=== PATIENT | female | born 1965 | race Caucasian/White ===

== ENCOUNTER → 2020-03-02 13:13 | Outpatient (BNVA) | payer MEDICAID, SELFPAY | PROVIDERS: PCP Internal Medicine; Referring Provider Internal Medicine; Visit Provider Internal Medicine Pulmonary Disease | DX: R53.83 Other fatigue (principal); G47.33 Obstructive sleep apnea (adult) (pediatric); R06.00 Dyspnea, unspecified; Z87.891 Personal history of nicotine dependence | CPT/HCPCS: 99202 ==

== ENCOUNTER → 2020-03-31 11:42 | Outpatient (REF) | payer MEDICAID, SELFPAY | LOC: HO.SL 11:42 | PROVIDERS: Visit Provider Internal Medicine Pulmonary Disease | DX: G47.10 Hypersomnia, unspecified (principal) | CPT/HCPCS: 95806 ==

== ENCOUNTER → 2020-04-13 12:39 | Outpatient (BNVA) | payer MEDICAID, SELFPAY | PROVIDERS: PCP Internal Medicine; Visit Provider Internal Medicine Pulmonary Disease | DX: J45.909 Unspecified asthma, uncomplicated (principal); R06.00 Dyspnea, unspecified | CPT/HCPCS: 99212 ==

== ENCOUNTER → 2020-05-21 13:12 | Outpatient (BNVA) | payer MEDICAID, SELFPAY | PROVIDERS: PCP Internal Medicine; Visit Provider Internal Medicine Pulmonary Disease | DX: J45.909 Unspecified asthma, uncomplicated (principal); R06.00 Dyspnea, unspecified | CPT/HCPCS: 99212 ==

== ENCOUNTER 2020-08-16 12:43 | Outpatient (REF) | payer MEDICAID, SELFPAY | END 2020-08-16 12:44 | disposition home or self-care (01) | LOC: HO.CT 12:43 | PROVIDERS: PCP Internal Medicine; Visit Provider Internal Medicine | DX: Z13.89 Encounter for screening for other disorder (principal) ==

== ENCOUNTER → 2020-12-22 12:49 | Outpatient (REF) | payer MEDICAID, SELFPAY ==
--- NOTE | 2020-12-22 12:55 | CA_ITS ---
Transthoracic Echocardiogram Patient (Last, First, Middle): Adela Grier, Gender: Female Date of : 1965 Age: 55 Procedure Date: 12/22/2020 Procedure Type: Transthoracic Echocardiogram Location: OP Height: 149.86 cm Weight: 65.32 kg BSA: 1.60 m2 Heart Rate: bpm BP: 190 / 62 mmHg Fleet Director: DSG Referring MD: Addy Iraheta MD Symptoms: R06.00 - Dyspnea, unspecified Study Quality: Fair ECG Rhythm: Sinus Conclusions: - The left ventricular systolic function is low normal. The visually estimated ejection fraction is between 50-55%. Findings Procedure Information Contrast agent, definity, is being given per protocol without apparent complications. Left Ventricle Normal left ventricular cavity size. The left ventricular systolic function is low normal. The visually estimated ejection fraction is between 50-55%. Paradoxical septal motion, possibly from conduction system disease. Prior Study Comparison No prior study available for comparison. Measurements 2D Systolic Function EF 4C: 58.80 >55% EF 2C: 62.10 >55% EF BiP: 62.50 >55% Mitral Valve MV Pk E: 1.05 MV PK A: 0.86 MV Decel Time: 179.00 E/A: 1.20 E'Lateral: 7.51 E'Medial: 6.74 E/E' Med: 15.60 E/E' Lat: 14.00 PHT: 52.00 MVA PHT: 4.23 Decel [place]: 5.90 Diastolic Function MV Pk E: 1.05 MV Pk A: 0.86 E/A: 1.20 E'Medial: 6.74 E/E' Med: 15.60 E' Laterial: 7.51 E/E' Lat: 14.00 Right Ventricle TAPSE (mm): 2.81 Updated in Other Vendor System with Status of Final Ricki Loaiza MD electronically signed on 12/23/2020 3:41:43 PM with status of Final
== END ==
LOC: HO.CARD 12:49
PROVIDERS: Visit Provider Internal Medicine Cardiovascular Disease
DX: R93.1 Abnormal findings on diagnostic imaging of heart and coronary circulation (principal)
CPT/HCPCS: 93308; Q9957

== ENCOUNTER → 2021-01-06 12:52 | Outpatient (BNVA) | payer MEDICAID, SELFPAY | PROVIDERS: PCP Internal Medicine; Visit Provider Internal Medicine Pulmonary Disease | DX: J45.909 Unspecified asthma, uncomplicated (principal); R06.00 Dyspnea, unspecified; E66.9 Obesity, unspecified; Z87.891 Personal history of nicotine dependence; Z88.1 Allergy status to other antibiotic agents; Z88.0 Allergy status to penicillin | CPT/HCPCS: 99212 ==

== ENCOUNTER 2021-01-20 11:53 | Outpatient (REF) | payer MEDICAID, SELFPAY ==
--- NOTE | 2021-01-20 16:32 | PFT_ITS ---
FLOWS: FEV1 74% of predicted at 1.62 L. FVC 66% of predicted at 1.82 L. FEV1 to FVC ratio of 0.89. No bronchodilator response, except in small to medium airways. LUNG VOLUMES: Total lung capacity 103% of predicted at 4.45 L. Residual volume 147% of predicted at 2.45 L. Slow vital capacity 75% of predicted at 2.00 L. Expiratory reserve volume 12% of predicted at 0.09 L. Diffusion capacity is normal. IMPRESSION: No obstructive or restrictive ventilatory defect. No bronchodilator response except in small to medium airways. Increased residual volume suggests air trapping. Decreased expiratory reserve volume suggests extrathoracic restriction likely secondary to abdominal obesity. MD JOANNA López/MODL / [id number] MTDD
== END 2021-01-20 11:54 | disposition home or self-care (01) ==
LOC: HO.RESP 11:53
PROVIDERS: PCP Internal Medicine; Visit Provider Internal Medicine Pulmonary Disease
DX: J45.909 Unspecified asthma, uncomplicated (principal)
CPT/HCPCS: 94060; 94727; 94729

== ENCOUNTER 2021-02-02 11:40 | Outpatient (REF) | payer MEDICAID, SELFPAY ==
[2021-02-02 11:53] LABS: MANUAL DIFF FLAG NO
[2021-02-02 12:10] LABS: Basophils Absolute Auto 0.1 X10*3/uL (0.0-0.2); Basophils Percent Auto 0.7 % (0-2); Eosinophils Absolute Auto 0.4 X10*3/uL (0.0-0.4); Eosinophils Percent Auto 5.3 % (0-4); Hematocrit 40.6 % (37.0-47.0); Hemoglobin 13.1 g/dl (12.0-16.0); Imm Gran Abs Auto 0.02 X10*3/uL (0.00-0.03); Imm Gran Pct Auto 0.3 % (0.0-0.4); Lymphocytes Absolute Auto 2.9 X10*3/uL (1.2-4.9); Lymphocytes Percent Auto 38.1 % (20-40); Mean Corpuscular HGB Conc 32.3 g/dl (31.0-35.0); Mean Corpuscular Hemoglobin 29.2 pg (27.0-33.0); Mean Corpuscular Volume 90.6 fL (80.0-98.0); Monocytes Absolute Auto 0.5 X10*3/uL (0.1-1.2); Monocytes Percent Auto 6.6 % (2-11); Neutrophils Absolute Auto 3.7 x10*3/uL (2.0-8.3); Platelet Count 371 X10*3/uL (160-400); Red Blood Count 4.48 X10*6/uL (4.20-5.50); Red Cell Distribution Width 13.2 % (11.0-16.0); White Blood Count 7.6 X10*3/uL (4.8-10.8)
== END 2021-02-02 11:41 | disposition home or self-care (01) ==
LOC: HO.LAB 11:40
PROVIDERS: PCP Internal Medicine; Visit Provider Internal Medicine Pulmonary Disease
DX: J45.909 Unspecified asthma, uncomplicated (principal)
CPT/HCPCS: 36415; 82785; 85025; 86003

== ENCOUNTER → 2021-02-04 12:44 | Outpatient (BNVA) | payer MEDICAID, SELFPAY | PROVIDERS: PCP Internal Medicine; Visit Provider Internal Medicine Pulmonary Disease | DX: J45.909 Unspecified asthma, uncomplicated (principal); Z91.09 Other allergy status, other than to drugs and biological substances | CPT/HCPCS: 99212 ==

== ENCOUNTER 2021-03-02 11:57 | Outpatient (REF) | payer MEDICAID, SELFPAY | END 2021-03-02 11:58 | disposition home or self-care (01) | LOC: HO.MDS 11:57 | PROVIDERS: PCP Internal Medicine; Visit Provider Internal Medicine Pulmonary Disease | DX: J45.50 Severe persistent asthma, uncomplicated (principal) | CPT/HCPCS: 96372; J2357 ==

== ENCOUNTER 2021-03-16 11:50 | Outpatient (REF) | payer MEDICAID, SELFPAY | END 2021-03-16 11:51 | disposition home or self-care (01) | LOC: HO.MDS 11:50 | PROVIDERS: PCP Internal Medicine; Visit Provider Internal Medicine Pulmonary Disease | DX: J45.50 Severe persistent asthma, uncomplicated (principal) | CPT/HCPCS: 96372; J2357 ==

== ENCOUNTER 2021-04-06 10:51 | Outpatient (REF) | payer MEDICAID, SELFPAY | END 2021-04-06 10:52 | disposition home or self-care (01) | LOC: HO.MDS 10:51 | PROVIDERS: PCP Internal Medicine; Visit Provider Internal Medicine Pulmonary Disease | DX: J45.50 Severe persistent asthma, uncomplicated (principal) | CPT/HCPCS: 96372; J2357 ==

== ENCOUNTER 2021-04-27 12:19 | Outpatient (REF) | payer MEDICAID, SELFPAY | END 2021-04-27 12:20 | disposition home or self-care (01) | LOC: HO.MDS 12:19 | PROVIDERS: PCP Internal Medicine; Visit Provider Internal Medicine Pulmonary Disease | DX: J45.50 Severe persistent asthma, uncomplicated (principal) | CPT/HCPCS: 96372; J2357 ==

== ENCOUNTER 2021-05-19 11:46 | Outpatient (REF) | payer MEDICAID, SELFPAY | END 2021-05-19 11:47 | disposition home or self-care (01) | LOC: HO.MDS 11:46 | PROVIDERS: PCP Internal Medicine; Visit Provider Internal Medicine Pulmonary Disease | DX: J45.50 Severe persistent asthma, uncomplicated (principal) | CPT/HCPCS: 96372; J2357 ==

== ENCOUNTER 2021-06-02 11:48 | Outpatient (REF) | payer MEDICAID, SELFPAY | END 2021-06-02 11:49 | disposition home or self-care (01) | LOC: HO.MDS 11:48 | PROVIDERS: PCP Internal Medicine; Visit Provider Internal Medicine Pulmonary Disease | DX: J45.50 Severe persistent asthma, uncomplicated (principal) | CPT/HCPCS: 96372; J2357 ==

== ENCOUNTER 2021-06-16 10:53 | Outpatient (REF) | payer MEDICAID, SELFPAY | END 2021-06-16 10:54 | disposition home or self-care (01) | LOC: HO.MDS 10:53 | PROVIDERS: PCP Internal Medicine; Visit Provider Internal Medicine Pulmonary Disease | DX: J45.50 Severe persistent asthma, uncomplicated (principal) | CPT/HCPCS: 96372; J2357 ==

== ENCOUNTER 2021-06-30 11:49 | Outpatient (REF) | payer MEDICAID, SELFPAY | END 2021-06-30 11:50 | disposition home or self-care (01) | LOC: HO.MDS 11:49 | PROVIDERS: PCP Internal Medicine; Visit Provider Internal Medicine Pulmonary Disease | DX: J45.50 Severe persistent asthma, uncomplicated (principal) | CPT/HCPCS: 96372; J2357 ==

== ENCOUNTER 2021-07-14 11:47 | Outpatient (REF) | payer MEDICAID, SELFPAY | END 2021-07-14 11:48 | disposition home or self-care (01) | LOC: HO.MDS 11:47 | PROVIDERS: PCP Internal Medicine; Visit Provider Internal Medicine Pulmonary Disease | DX: J45.50 Severe persistent asthma, uncomplicated (principal) | CPT/HCPCS: 96372; J2357 ==

== ENCOUNTER 2021-08-04 10:46 | Outpatient (REF) | payer MEDICAID, SELFPAY | END 2021-08-04 10:47 | disposition home or self-care (01) | LOC: HO.MDS 10:46 | PROVIDERS: PCP Internal Medicine; Visit Provider Internal Medicine Pulmonary Disease | DX: J45.50 Severe persistent asthma, uncomplicated (principal) | CPT/HCPCS: 96372; J2357 ==

== ENCOUNTER → 2021-08-25 11:44 | Outpatient (BNVA) | payer MEDICAID, SELFPAY | PROVIDERS: PCP Internal Medicine; Visit Provider Internal Medicine Pulmonary Disease | DX: J45.909 Unspecified asthma, uncomplicated (principal); Z91.09 Other allergy status, other than to drugs and biological substances | CPT/HCPCS: 99212 ==

== ENCOUNTER 2021-09-02 13:41 | Outpatient (REF) | payer MEDICAID, SELFPAY | END 2021-09-02 13:42 | disposition home or self-care (01) | LOC: HO.MDS 13:41 | PROVIDERS: PCP Internal Medicine; Visit Provider Internal Medicine Pulmonary Disease | DX: J45.50 Severe persistent asthma, uncomplicated (principal) | CPT/HCPCS: 96372; J2357 ==

== ENCOUNTER 2021-09-16 11:44 | Outpatient (REF) | payer MEDICAID, SELFPAY | END 2021-09-16 11:45 | disposition home or self-care (01) | LOC: HO.MDS 11:44 | PROVIDERS: PCP Internal Medicine; Visit Provider Internal Medicine Pulmonary Disease | DX: J45.50 Severe persistent asthma, uncomplicated (principal) | CPT/HCPCS: 96372; J2357 ==

== ENCOUNTER 2021-09-30 10:47 | Outpatient (REF) | payer MEDICAID, SELFPAY | END 2021-09-30 10:48 | disposition home or self-care (01) | LOC: HO.MDS 10:47 | PROVIDERS: PCP Internal Medicine; Visit Provider Internal Medicine Pulmonary Disease | DX: J45.50 Severe persistent asthma, uncomplicated (principal) | CPT/HCPCS: 96372; J2357 ==

== ENCOUNTER 2021-10-19 11:48 | Outpatient (REF) | payer MEDICAID, SELFPAY | END 2021-10-19 11:49 | disposition home or self-care (01) | LOC: HO.MDS 11:48 | PROVIDERS: Visit Provider Internal Medicine Pulmonary Disease | DX: J45.50 Severe persistent asthma, uncomplicated (principal) | CPT/HCPCS: 96372; J2357 ==

== ENCOUNTER 2021-11-02 10:49 | Outpatient (REF) | payer MEDICAID, SELFPAY | END 2021-11-02 10:50 | disposition home or self-care (01) | LOC: HO.MDS 10:49 | PROVIDERS: Visit Provider Internal Medicine Pulmonary Disease | DX: J45.50 Severe persistent asthma, uncomplicated (principal) | CPT/HCPCS: 96372; J2357 ==

== ENCOUNTER 2021-11-16 11:01 | Outpatient (REF) | payer MEDICAID, SELFPAY | END 2021-11-16 11:02 | disposition home or self-care (01) | LOC: HO.MDS 11:01 | PROVIDERS: Visit Provider Internal Medicine Pulmonary Disease | DX: J45.50 Severe persistent asthma, uncomplicated (principal) | CPT/HCPCS: 96372; J2357 ==

== ENCOUNTER → 2021-11-23 12:29 | Outpatient (BNVA) | payer MEDICAID, SELFPAY | PROVIDERS: PCP Internal Medicine; Visit Provider Internal Medicine Pulmonary Disease | DX: J45.909 Unspecified asthma, uncomplicated (principal); R06.00 Dyspnea, unspecified; Z91.09 Other allergy status, other than to drugs and biological substances | CPT/HCPCS: 99212 ==

== ENCOUNTER → 2021-12-13 11:48 | Outpatient (REF) | payer MEDICAID, SELFPAY ==
--- NOTE | 2021-12-13 11:52 | CA_ITS ---
Transthoracic Echocardiogram Patient (Last, First, Middle): Adela Grier, Gender: Female Date of : 1965 Age: 56 Procedure Date: 12/13/2021 Procedure Type: Transthoracic Echocardiogram Location: OP Height: 149.86 cm Weight: 66.23 kg BSA: 1.61 m2 Heart Rate: bpm BP: 122 / 70 mmHg Relations Director: Referring MD: Aren Graf MD Symptoms: R06.00 - Dyspnea, unspecified Study Quality: Fair ECG Rhythm: Sinus Conclusions: - The left ventricular systolic function is low normal. The visually estimated ejection fraction is between 50-55%. - E/E prime ratio is >15, consistent with elevated filling pressures. Evidence suggests grade I (mild) diastolic dysfunction - No obvious valvular pathology seen on this study. - There is no evidence of pulmonary hypertension. Findings Procedure Information Contrast agent, definity, is being given per protocol without apparent complications. Left Ventricle Normal left ventricular cavity size. There is mildly increased left ventricular wall thickness. The left ventricular systolic function is low normal. The visually estimated ejection fraction is between 50-55%. There is paradoxical septal motion consistent with a left bundle branch block. E/E prime ratio is >15, consistent with elevated filling pressures. Evidence suggests grade I (mild) diastolic dysfunction. Right Ventricle Normal right ventricular cavity size and systolic function. Atria Both atria are normal in size. Aortic Valve The aortic valve was not well visualized. There is no aortic valve stenosis. There is no aortic valve regurgitation. Mitral Valve The mitral valve appears normal. There is no mitral valve regurgitation. There is no mitral valve stenosis. Pulmonic Valve The pulmonic valve is likely normal. Tricuspid Valve There is trace tricuspid valve regurgitation. There is no evidence of pulmonary hypertension. Great Vessels The asc aorta is normal in size. Venous The inferior vena cava is normal in size and collapses greater than 50% with inspiration. Pericardium/Pleural There is a trivial pericardial effusion. Prior Study Comparison No significant change compared to prior study dated: 12/22/2020. Recommendations, Care & Conclusions No obvious valvular pathology seen on this study. Measurements 2D Linear Measurements IVSd: 1.21 0.6-0.9/0.6-1.0 cm LVIDd: 4.08 3.9-5.3/4.2-5.9 cm LVIDd Index: 2.53 2.4-3.2/2.2-3.1 cm/m2 LVIDs: 2.68 2.0-3.6 cm LVPWd: 1.21 0.7-1.1 cm Ao Root: 2.90 2.1-3.5 cm LA Diam: 3.50 2.7-3.8/3.0-4.0 cm LAIDs Index: 2.17 1.5-2.3 cm/m2 LV Mass: 214.98 67-162/88-224 g LV Mass Index: 133.53 43-95/49-115 g/m2 LVOT Diam: 2.00 3.0+(-)1.3 cm 2D Systolic Function EF 4C: 60.90 >55% EF 2C: 65.00 >55% EF BiP: 63.30 >55% Mitral Valve MV Pk E: 0.82 MV PK A: 0.93 MV Decel Time: 146.00 E/A: 0.90 E'Lateral: 5.33 E'Medial: 5.33 E/E' Med: 15.40 E/E' Lat: 15.40 PHT: 43.00 MVA PHT: 5.12 Decel [place]: 5.62 Aortic Valve AoV Pk Mata: 1.76 AoV Mn Mata: 1.08 AoV VTI: 0.33 AoV Pk Grad: 12.00 Aov Mn Grad: 6.00 SALOME Cont.VTI: 2.05 LVOT LVOT Pk Mata: 0.95 LVOT Mn Mata: 0.67 LVOT VTI: 0.21 LVOT Pk Grad: 4.00 LVOT Mn Grad: 2.00 LVOT Diam: 2.00 LVOT Area: 3.14 Diastolic Function MV Pk E: 0.82 MV Pk A: 0.93 E/A: 0.90 E'Medial: 5.33 E/E' Med: 15.40 E' Laterial: 5.33 E/E' Lat: 15.40 Right Ventricle TAPSE (mm): 29.00 TVS' Mata: 14.00 Tricuspid Valve TR Pk Mata: 2.27 TR Pk Grad: 21.00 RA Press: 3.00 RVSP: 24.00 Great Vessels Aorta Ao Root-2D: 2.90 2.0-3.7 cm Ao Asc: 3.40 2.1-3.4 cm Pulmonary Valve PV Pk Mata: 1.21 Peak PV Grad: 6.00 Updated in Other Vendor System with Status of Final Ricki Loaiza MD electronically signed on 12/14/2021 10:47:30 AM with status of Final
== END ==
LOC: HO.CARD 11:48
PROVIDERS: Visit Provider Internal Medicine Pulmonary Disease
DX: R06.00 Dyspnea, unspecified (principal)
CPT/HCPCS: 93306; Q9957

== ENCOUNTER 2021-12-13 13:16 | Outpatient (REF) | payer MEDICAID, SELFPAY | END 2021-12-13 13:17 | disposition home or self-care (01) | LOC: HO.MDS 13:16 | PROVIDERS: Visit Provider Internal Medicine Pulmonary Disease | DX: J45.50 Severe persistent asthma, uncomplicated (principal) | CPT/HCPCS: 93306; 96372; J2357; Q9957 ==

== ENCOUNTER 2021-12-27 11:46 | Outpatient (REF) | payer MEDICAID, SELFPAY | END 2021-12-27 11:47 | disposition home or self-care (01) | LOC: HO.MDS 11:46 | PROVIDERS: Visit Provider Internal Medicine Pulmonary Disease | DX: J45.50 Severe persistent asthma, uncomplicated (principal) | CPT/HCPCS: 96372; J2357 ==

== ENCOUNTER → 2021-12-29 12:32 | Outpatient (BNVA) | payer MEDICAID, SELFPAY | PROVIDERS: PCP Internal Medicine; Visit Provider Internal Medicine Pulmonary Disease | DX: J45.909 Unspecified asthma, uncomplicated (principal); Z91.09 Other allergy status, other than to drugs and biological substances; R06.00 Dyspnea, unspecified | CPT/HCPCS: 99212 ==

== ENCOUNTER 2022-01-10 11:50 | Outpatient (REF) | payer MEDICAID, SELFPAY | END 2022-01-10 11:51 | disposition home or self-care (01) | LOC: HO.MDS 11:50 | PROVIDERS: Visit Provider Internal Medicine Pulmonary Disease | DX: J45.50 Severe persistent asthma, uncomplicated (principal) | CPT/HCPCS: 96372; J2357 ==

== ENCOUNTER 2022-01-24 11:50 | Outpatient (REF) | payer MEDICAID, SELFPAY | END 2022-01-24 11:51 | disposition home or self-care (01) | LOC: HO.MDS 11:50 | PROVIDERS: Visit Provider Internal Medicine Pulmonary Disease | DX: J45.50 Severe persistent asthma, uncomplicated (principal) | CPT/HCPCS: 96372; J2357 ==

== ENCOUNTER 2022-02-07 11:43 | Outpatient (REF) | payer MEDICAID, SELFPAY | END 2022-02-07 11:44 | disposition home or self-care (01) | LOC: HO.MDS 11:43 | PROVIDERS: Visit Provider Internal Medicine Pulmonary Disease | DX: J45.50 Severe persistent asthma, uncomplicated (principal) | CPT/HCPCS: 96372; J2357 ==

== ENCOUNTER 2022-02-27 10:58 | Outpatient (REF) | payer MEDICAID, SELFPAY | END 2022-02-27 10:59 | disposition home or self-care (01) | LOC: HO.MDS 10:58 | PROVIDERS: Visit Provider Internal Medicine Pulmonary Disease | DX: J45.50 Severe persistent asthma, uncomplicated (principal) | CPT/HCPCS: 96372; J2357 ==

== ENCOUNTER 2022-03-28 10:50 | Outpatient (REF) | payer MEDICAID, SELFPAY | END 2022-03-28 10:51 | disposition home or self-care (01) | LOC: HO.MDS 10:50 | PROVIDERS: Visit Provider Internal Medicine Pulmonary Disease | DX: J45.50 Severe persistent asthma, uncomplicated (principal) | CPT/HCPCS: 96372; J2357 ==

== ENCOUNTER 2022-04-11 11:45 | Outpatient (REF) | payer MEDICAID, SELFPAY | END 2022-04-11 11:46 | disposition home or self-care (01) | LOC: HO.MDS 11:45 | PROVIDERS: Visit Provider Internal Medicine Pulmonary Disease | DX: J45.50 Severe persistent asthma, uncomplicated (principal) | CPT/HCPCS: 96372; J2357 ==

== ENCOUNTER 2022-04-25 11:44 | Outpatient (REF) | payer MEDICAID, SELFPAY | END 2022-04-25 11:45 | disposition home or self-care (01) | LOC: HO.MDS 11:44 | PROVIDERS: Visit Provider Internal Medicine Pulmonary Disease | DX: J45.50 Severe persistent asthma, uncomplicated (principal) | CPT/HCPCS: 96372; J2357 ==

== ENCOUNTER 2022-05-17 11:43 | Outpatient (REF) | payer MEDICAID, SELFPAY | END 2022-05-17 11:44 | disposition home or self-care (01) | LOC: HO.MDS 11:43 | PROVIDERS: Visit Provider Internal Medicine Pulmonary Disease | DX: J45.50 Severe persistent asthma, uncomplicated (principal) | CPT/HCPCS: 96372; J2357 ==

== ENCOUNTER → 2022-06-13 10:48 | Outpatient (BNVA) | payer MEDICAID, SELFPAY | PROVIDERS: PCP Internal Medicine; Visit Provider Internal Medicine Rheumatology | DX: M54.50 Low back pain, unspecified (principal); M25.561 Pain in right knee; M25.562 Pain in left knee; M25.551 Pain in right hip; M25.552 Pain in left hip; M79.7 Fibromyalgia | CPT/HCPCS: 99202 ==

== ENCOUNTER 2022-06-22 11:49 | Outpatient (REF) | payer MEDICAID, SELFPAY | END 2022-06-22 11:50 | disposition home or self-care (01) | LOC: HO.MDS 11:49 | PROVIDERS: Visit Provider Internal Medicine Pulmonary Disease | DX: J45.50 Severe persistent asthma, uncomplicated (principal) | CPT/HCPCS: 96372; J2357 ==

== ENCOUNTER 2022-07-06 11:43 | Outpatient (REF) | payer MEDICAID, SELFPAY | END 2022-07-06 11:44 | disposition home or self-care (01) | LOC: HO.MDS 11:43 | PROVIDERS: Visit Provider Internal Medicine Pulmonary Disease | DX: J45.50 Severe persistent asthma, uncomplicated (principal) | CPT/HCPCS: 96372; J2357 ==

== ENCOUNTER 2022-07-28 11:41 | Outpatient (REF) | payer MEDICAID, SELFPAY | END 2022-07-28 11:42 | disposition home or self-care (01) | LOC: HO.MDS 11:41 | PROVIDERS: Visit Provider Internal Medicine Pulmonary Disease | DX: J45.50 Severe persistent asthma, uncomplicated (principal) | CPT/HCPCS: 96372; J2357 ==

== ENCOUNTER → 2022-08-01 10:42 | Outpatient (BNVA) | payer MEDICAID, SELFPAY | PROVIDERS: PCP Internal Medicine; Visit Provider Internal Medicine Pulmonary Disease | DX: J45.909 Unspecified asthma, uncomplicated (principal); Z91.09 Other allergy status, other than to drugs and biological substances | CPT/HCPCS: 99212 ==

== ENCOUNTER 2022-08-11 09:52 | Outpatient (REF) | payer MEDICAID, SELFPAY | END 2022-08-11 09:53 | disposition home or self-care (01) | LOC: HO.MDS 09:52 | PROVIDERS: Visit Provider Internal Medicine Pulmonary Disease | DX: J45.50 Severe persistent asthma, uncomplicated (principal) | CPT/HCPCS: 96372; J2357 ==

== ENCOUNTER 2022-09-05 11:43 | Outpatient (REF) | payer MEDICAID, SELFPAY | END 2022-09-05 11:44 | disposition home or self-care (01) | LOC: HO.MDS 11:43 | PROVIDERS: Visit Provider Internal Medicine Pulmonary Disease | DX: J45.50 Severe persistent asthma, uncomplicated (principal) | CPT/HCPCS: 96372; J2357 ==

== ENCOUNTER 2022-09-19 | Outpatient (REF) | payer MEDICAID, SELFPAY | END 2022-09-19 00:01 | disposition home or self-care (01) | LOC: CF | PROVIDERS: Visit Provider Internal Medicine | DX: I44.7 Left bundle-branch block, unspecified (principal); R07.2 Precordial pain; I10 Essential (primary) hypertension | CPT/HCPCS: 93005; 99202; J2357 ==

== ENCOUNTER 2022-10-03 11:45 | Outpatient (REF) | payer MEDICAID, SELFPAY | END 2022-10-03 11:46 | disposition home or self-care (01) | LOC: HO.MDS 11:45 | PROVIDERS: Visit Provider Internal Medicine Pulmonary Disease | DX: J45.50 Severe persistent asthma, uncomplicated (principal) | CPT/HCPCS: 96372; J2357 ==

== ENCOUNTER 2022-10-17 11:57 | Outpatient (REF) | payer MEDICAID, SELFPAY | END 2022-10-17 11:58 | disposition home or self-care (01) | LOC: HO.MDS 11:57 | PROVIDERS: Visit Provider Internal Medicine Pulmonary Disease | DX: J45.50 Severe persistent asthma, uncomplicated (principal) | CPT/HCPCS: 96372; J2357 ==

== ENCOUNTER 2022-11-13 13:04 | Outpatient (AMB) | payer MEDICAID, SELFPAY ==
[2022-11-13 13:32] VITALS: BP 130/80; PULSE 69; O2SAT 98
--- NOTE | 2022-11-13 13:32 | A.OFFVIS_ITS ---
Intake Vital Signs 11/13/22 13:32 Weight 69 kg BP 130/80 Blood Pressure Location Rt brachial Position Sitting Pulse 69 Pulse Source Pulse Oximeter Pulse Oximetry (%) 98 Oxygen Delivery Method Room Air Intake Visit Reasons: dupixent teaching [employer] Required: Yes [employer] Name: Amena Rascon Information Interpreted: clinical only Allergies Penicillins [PENICILLINS] Allergy (Unknown, Verified 11/13/22 13:40) Swelling, Rash HPI dupixent teaching HPI Details Adela is here for a Dupixent teach she was educated on hand washing, injection preparation, administration, and disposal.?Adela was able to return demonstrate proper technique for hand washing, injection preparation, administration and disposal of needle and states she has no questions at this time. Medication Dupixent 300mg/2mL pre-filled pen (patient?s own meds) Loading dose of 600mg given by the patient in 2 SQ injections; injection #1 R abdomen ;? injection #2 L abdomen Lot# [id number] expires 07/23/2024. Patient aware her next injection is in 15 days. Nurse visit only.? [facility] Medical History (Updated 09/19/22 @ 14:01 by Ricki Loaiza MD) Acquired hypothyroidism Essential hypertension GERD (gastroesophageal reflux disease) LBBB (left bundle branch block) Polyarthralgia Surgical History History of 2 sections Hx of lithotripsy Family History Mother Diabetes Arthritis Father No problems noted. Brother Rheumatic fever Maternal Grandmother Arthritis Other Family history of diabetes mellitus Family history of heart disease Social History Alcohol intake: current Alcohol intake frequency: holidays/special occasions only Patient Tobacco Use Status: Former Tobacco user Quit Date: 2017 Assessment & Plan Assessment & Plan (1) Asthma: Code(s): J45.909 - Unspecified asthma, uncomplicated Coding Level of Care Code Established Pt Est Pt Level 1 (89368) Patient Type Established Diagnoses Asthma J45.909 Comment NURSE VISIT ONLY
== END 2022-11-13 13:28 | disposition home or self-care (01) ==
PROVIDERS: PCP Internal Medicine; Visit Provider Internal Medicine Pulmonary Disease
DX: J45.909 Unspecified asthma, uncomplicated (principal)

== ENCOUNTER → 2022-11-13 13:04 | Outpatient (BNVA) | payer MEDICAID, SELFPAY | PROVIDERS: PCP Internal Medicine; Visit Provider Internal Medicine Pulmonary Disease | DX: J45.909 Unspecified asthma, uncomplicated (principal) | CPT/HCPCS: 99211 ==

== ENCOUNTER 2022-11-28 12:45 | Outpatient (AMB) | payer MEDICAID, SELFPAY ==
[2022-11-28 14:20] VITALS: BP 128/78; PULSE 80; O2SAT 99
--- NOTE | 2022-11-28 14:20 | A.OFFVIS_ITS ---
Intake Vital Signs 11/28/22 14:20 Weight 69 kg BP 128/78 Blood Pressure Location Lt brachial Position Sitting Pulse 80 Pulse Source Pulse Oximeter Pulse Oximetry (%) 99 Oxygen Delivery Method Room Air Intake Visit Reasons: dupixent teaching Allergies Penicillins [PENICILLINS] Allergy (Unknown, Verified 11/28/22 14:21) Swelling, Rash Medication List - Last Reconciled 11/28/22 by Tanya Alatorre LPN cyclobenzaprine 10 mg PO BEDTIME docusate sodium 100 mg PO BEDTIME PRN dupilumab (Dupixent) 300 mg (2 mL) subcut Q2W 28 days enalapril maleate 20 mg PO DAILY fluticasone furoate-vilanterol 200-25 mcg/dose (Breo Ellipta) 1 inh inhalation DAILY 30 days fluticasone propionate 50 mcg/actuation 1 spray intranasal BID gabapentin 300 mg PO TID hydrochlorothiazide 12.5 mg PO QAM hydroxyzine pamoate 25 - 50 mg PO BID PRN ibuprofen 800 mg PO TID metoprolol succinate ER 100 mg PO DAILY omeprazole 20 mg PO DAILY quetiapine 50 mg PO BEDTIME simethicone 80 mg PO TID PRN umeclidinium 62.5 mcg/actuation (Incruse Ellipta) 1 inh inhalation DAILY 30 days HPI dupixent teaching HPI Details Adela is here for her second dupixent injection as she did not feel completely comfortable self injecting at home yet. She was again educated on hand washing, injection preparation, administration, and disposal.?Adela was able to return demonstrate proper technique for hand washing, injection preparation, administration and disposal of needle and states she has no questions at this time. Medication Dupixent 300mg/2mL pre-filled pen (patient?s own meds) Maintenance dose of 300mg given by the patient in 1 SQ injection in her R abdomen Lot# [id number] expires 08/23/2024. Patient aware her next injection is in 14 days. Nurse visit only.? [facility] Medical History (Updated 09/19/22 @ 14:01 by Ricki Loaiza MD) Acquired hypothyroidism Essential hypertension GERD (gastroesophageal reflux disease) LBBB (left bundle branch block) Polyarthralgia Surgical History History of 2 sections Hx of lithotripsy Family History Mother Diabetes Arthritis Father No problems noted. Brother Rheumatic fever Maternal Grandmother Arthritis Other Family history of diabetes mellitus Family history of heart disease Social History Alcohol intake: current Alcohol intake frequency: holidays/special occasions only Patient Tobacco Use Status: Former Tobacco user Quit Date: 2017 Assessment & Plan Assessment & Plan (1) Asthma: Code(s): J45.909 - Unspecified asthma, uncomplicated Coding Level of Care Code Established Pt Est Pt Level 1 (76656) Patient Type Established Diagnoses Asthma J45.909 Comment NURSE VISIT ONLY
== END 2022-11-29 07:35 | disposition home or self-care (01) ==
PROVIDERS: PCP Internal Medicine; Visit Provider Internal Medicine Pulmonary Disease
DX: J45.909 Unspecified asthma, uncomplicated (principal)

== ENCOUNTER → 2022-11-28 12:45 | Outpatient (BNVA) | payer MEDICAID, SELFPAY | PROVIDERS: PCP Internal Medicine; Visit Provider Internal Medicine Pulmonary Disease | DX: Z71.89 Other specified counseling (principal); J45.909 Unspecified asthma, uncomplicated | CPT/HCPCS: 99211 ==

== ENCOUNTER → 2022-12-13 10:21 | Outpatient (REF) | payer MEDICAID, SELFPAY ==
--- NOTE | 2022-12-13 10:36 | CA_ITS ---
Transthoracic Echocardiogram Patient (Last, First, Middle): Adela Grier, Gender: Female Date of : 1965 Age: 57 Procedure Date: 12/13/2022 Procedure Type: Transthoracic Echocardiogram Location: OP Height: 149.86 cm Weight: 64.41 kg BSA: 1.59 m2 Heart Rate: bpm BP: 124 / 56 mmHg Immunology Specialist: Referring MD: Ricki Loaiza MD Symptoms: I44.7 - Left bundle-branch block, unspecified Study Quality: Fair ECG Rhythm: Sinus, LBBB Conclusions: - The left ventricular systolic function is normal. The visually estimated ejection fraction is between 55-60%. - No obvious valvular pathology seen on this study. Findings Left Ventricle Normal left ventricular cavity size. There is mildly increased left ventricular wall thickness. The left ventricular systolic function is normal. The visually estimated ejection fraction is between 55-60%. There is no evidence of regional wall motion abnormalities. Diastolic function is normal for age. Right Ventricle Normal right ventricular cavity size and systolic function. Atria Both atria are normal in size. Aortic Valve The aortic valve was not well visualized. There is no aortic valve regurgitation. No significant aortic stenosis. Mitral Valve The mitral valve appears normal. There is no mitral valve regurgitation. There is no mitral valve stenosis. Pulmonic Valve The pulmonic valve is likely normal. Tricuspid Valve There is trace tricuspid valve regurgitation. There is no evidence of pulmonary hypertension. Great Vessels The asc aorta is normal in size. Venous The inferior vena cava is normal in size and collapses greater than 50% with inspiration. Pericardium/Pleural There is a trivial pericardial effusion. Prior Study Comparison No significant change compared to prior study dated: 12/13/2021. Recommendations, Care & Conclusions No obvious valvular pathology seen on this study. Measurements 2D Linear Measurements IVSd: 1.22 0.6-0.9/0.6-1.0 cm LVIDd: 3.52 3.9-5.3/4.2-5.9 cm LVIDd Index: 2.21 2.4-3.2/2.2-3.1 cm/m2 LVIDs: 2.33 2.0-3.6 cm LVPWd: 1.21 0.7-1.1 cm Ao Root: 2.70 2.1-3.5 cm LA Diam: 3.40 2.7-3.8/3.0-4.0 cm LAIDs Index: 2.14 1.5-2.3 cm/m2 LV Mass: 173.71 67-162/88-224 g LV Mass Index: 109.25 43-95/49-115 g/m2 LVOT Diam: 1.80 3.0+(-)1.3 cm 2D Systolic Function EF 4C: 48.20 >55% EF 2C: 54.00 >55% EF BiP: 51.30 >55% Mitral Valve MV Pk E: 0.92 MV PK A: 1.04 MV Decel Time: 111.00 E/A: 0.90 E'Lateral: 6.42 E'Medial: 6.74 E/E' Med: 13.60 E/E' Lat: 14.30 PHT: 32.00 MVA PHT: 6.88 Decel [place]: 8.27 Aortic Valve AoV Pk Mata: 1.92 AoV Mn Mata: 1.21 AoV VTI: 0.36 AoV Pk Grad: 15.00 Aov Mn Grad: 7.00 SALOME Cont.VTI: 1.75 LVOT LVOT Pk Mata: 1.21 LVOT Mn Mata: 0.79 LVOT VTI: 0.25 LVOT Pk Grad: 6.00 LVOT Mn Grad: 3.00 LVOT Diam: 1.80 LVOT Area: 2.54 Diastolic Function MV Pk E: 0.92 MV Pk A: 1.04 E/A: 0.90 E'Medial: 6.74 E/E' Med: 13.60 E' Laterial: 6.42 E/E' Lat: 14.30 Right Ventricle TAPSE (mm): 38.00 TVS' Mata: 14.00 Tricuspid Valve TR Pk Mata: 2.43 TR Pk Grad: 24.00 RA Press: 3.00 RVSP: 27.00 Great Vessels Aorta Ao Root-2D: 2.70 2.0-3.7 cm Ao Asc: 3.40 2.1-3.4 cm Pulmonary Valve PV Pk Mata: 1.49 Peak PV Grad: 9.00 Updated in Other Vendor System with Status of Final Ricki Loaiza MD electronically signed on 12/14/2022 9:55:04 AM with status of Final
== END ==
LOC: HO.CARD 10:21
PROVIDERS: PCP Internal Medicine; Visit Provider Internal Medicine
DX: I44.7 Left bundle-branch block, unspecified (principal)
CPT/HCPCS: 93306

== ENCOUNTER → 2022-12-13 10:36 | Outpatient (BNV) | payer MEDICAID, SELFPAY | PROVIDERS: PCP Internal Medicine; Visit Provider Internal Medicine | DX: I44.7 Left bundle-branch block, unspecified (principal); R94.31 Abnormal electrocardiogram [ECG] [EKG] | CPT/HCPCS: 93306 ==

== ENCOUNTER 2023-02-22 12:55 | Outpatient (AMB) | payer MEDICAID, SELFPAY ==
[2023-02-22 13:05] VITALS: BP 142/72; PULSE 71; O2SAT 99; BMI 31.2
--- NOTE | 2023-02-22 13:05 | A.OFFVIS_ITS ---
Intake Vital Signs 02/22/23 13:05 Height 4 ft 11 in Weight 154 lb 5.177 oz BMI 31.2 BP 142/72 H Blood Pressure Location Rt brachial Position Sitting Pulse 71 Pulse Source Doppler Pulse Oximetry (%) 99 Oxygen Delivery Method Room Air Intake Visit Reasons: asthma Allergies Penicillins [PENICILLINS] Allergy (Unknown, Verified 02/22/23 13:08) Swelling, Rash HPI asthma HPI Details 57-year-old lady, former minimal smoker, with underlying obesity followed for intermittent episodes of dyspnea, environmental allergies, and severe persistent allergic asthma.? She has been switched from Xolair to Dupixent with improvement in symptom control. She continues to use Breo and albuterol MDI with reason baseline syndrome controlled. Patient does complain of approximately 3 week history of sinus congestion and related productive cough. She denies wheezing. [facility] Medical History (Updated 02/22/23 @ 13:23 by Aren Graf MD) LBBB (left bundle branch block) Essential hypertension Polyarthralgia Acquired hypothyroidism GERD (gastroesophageal reflux disease) Surgical History History of 2 sections Hx of lithotripsy Family History Mother Diabetes Arthritis Father No problems noted. Brother Rheumatic fever Maternal Grandmother Arthritis Other Family history of diabetes mellitus Family history of heart disease Social History Alcohol intake: current Alcohol intake frequency: holidays/special occasions only Patient Tobacco Use Status: Former Tobacco user Quit Date: 2017 Review of Systems Const Denies daytime sleepiness, Denies excessive sweating, Denies fatigue, Denies fever(s), Denies lethargy, Denies malaise, Denies night sweats, Denies snoring and Denies weight loss Eyes Denies blurry vision and Denies itchy eyes ENT Reports nasal congestion, Reports post nasal drip, Denies sinus pain, Reports sinus pressure and Denies other ( Thrush) Card Denies chest pain, Denies pedal edema, Denies dyspnea, Denies orthopnea and Denies paroxysmal nocturnal dyspnea Resp Denies cough, Denies hemoptysis, Denies excessive phlegm production, Denies dyspnea, Denies snoring and Denies wheezing GI Denies abdominal pain and Denies heartburn Musc Denies myalgias, Denies arthralgias and Denies joint swelling Skin/Breast Denies rash Neuro Denies memory loss and Denies seizure-like activity Psych Denies abnormal sleep pattern, Denies anxiety and Denies memory loss Endo Denies excessive sweating, Denies fatigue and Denies heat intolerance Harshil/Lymph Denies easy bruising Aller/Immun Denies itchy eyes, Denies seasonal rhinorrhea and Denies wheezing Physical Exam Vital Signs: Last Vital Signs Pulse 71 02/22/23 13:05 BP 142/72 H 02/22/23 13:05 Pulse Ox 99 02/22/23 13:05 Oxygen Delivery Method Room Air 02/22/23 13:05 BMI result Body Mass Index 31.2 Const General: no acute distress and alert Nutritional Appearance: not obese Orientation/consciousness: Other orientation findings ( oriented) HEENT Head: Yes atraumatic Eyes General: appearance normal, both eyes and all related structures Sclerae: sclerae normal EOM: EOMs intact bilaterally Neck Neck: Yes supple Lymphatic: no lymphadenopathy noted Resp Effort & Inspection: normal respiratory effort and no use of accessory muscles Auscultation: clear to auscultation bilaterally Cardio Rate: regular rate Rhythm: regular rhythm Heart sounds: no gallops, no murmurs and no rubs Skin General skin exam: other ( warm) Extrem General: No clubbing, No cyanosis and No edema Assessment & Plan Assessment & Plan (1) Asthma: Code(s): J45.909 - Unspecified asthma, uncomplicated Plan: Well controlled on regimen of Dupixent, Breo, Incruse and albuterol MDI. Continue current regimen. (2) Environmental allergies: Code(s): Z91.09 - Other allergy status, other than to drugs and biological substances Plan: Well controlled on Dupixent. Continue current regimen. (3) Sinusitis, acute: Code(s): J01.90 - Acute sinusitis, unspecified Plan: Will treat with a course of doxycycline. Medications: New doxycycline monohydrate 100 mg PO BID 28 caps 0RF 14 days Coding Level of Care Code Est Pt Level 4 (32397) Diagnoses Asthma J45.909 Environmental allergies Z91.09 Sinusitis, acute J01.90
== END 2023-02-22 13:21 | disposition home or self-care (01) ==
PROVIDERS: PCP Internal Medicine; Visit Provider Internal Medicine Pulmonary Disease
DX: J45.909 Unspecified asthma, uncomplicated (principal); Z91.09 Other allergy status, other than to drugs and biological substances; J01.90 Acute sinusitis, unspecified
CPT/HCPCS: 99214

== ENCOUNTER → 2023-02-22 12:55 | Outpatient (BNVA) | payer MEDICAID, SELFPAY | PROVIDERS: PCP Internal Medicine; Visit Provider Internal Medicine Pulmonary Disease | DX: J45.50 Severe persistent asthma, uncomplicated (principal); J01.90 Acute sinusitis, unspecified; Z91.09 Other allergy status, other than to drugs and biological substances; Z87.891 Personal history of nicotine dependence | CPT/HCPCS: 99212 ==

== ENCOUNTER 2023-06-08 12:44 | Outpatient (AMB) | payer MEDICAID, SELFPAY ==
[2023-06-08 13:23] VITALS: BP 140/80; PULSE 82; BMI 31.4
--- NOTE | 2023-06-08 13:23 | MHC.OFFVIS ---
Intake Vital Signs 06/08/23 13:23 06/08/23 13:55 Height 4 ft 11 in Weight 155 lb 10.342 oz BMI 31.4 BP 140/80 H 128/70 Blood Pressure Location Lt brachial Lt brachial Position Sitting Sitting Pulse 82 Intake Visit Reasons: pre CTA appt Intake Note: pre CTA appt Allergies Penicillins [PENICILLINS] Allergy (Unknown, Verified 02/22/23 13:08) Swelling, Rash Medication List - Last Reconciled 06/08/23 by Loretta Menendez NP albuterol sulfate 90 mcg/actuation 2 puffs inhalation 6XD PRN 30 days cyclobenzaprine 10 mg PO BEDTIME docusate sodium 100 mg PO BEDTIME PRN doxycycline monohydrate 100 mg PO BID 14 days dupilumab (Dupixent) 300 mg (2 mL) subcut Q2W 28 days enalapril maleate 20 mg PO DAILY fluticasone furoate-vilanterol 200-25 mcg/dose (Breo Ellipta) 1 inh inhalation DAILY 30 days fluticasone propionate 50 mcg/actuation 1 spray intranasal BID gabapentin 300 mg PO TID hydrochlorothiazide 12.5 mg PO QAM hydroxyzine pamoate 25 - 50 mg PO BID PRN ibuprofen 800 mg PO TID metoprolol succinate ER 100 mg PO DAILY omeprazole 20 mg PO DAILY quetiapine 50 mg PO BEDTIME simethicone 80 mg PO TID PRN umeclidinium 62.5 mcg/actuation (Incruse Ellipta) 1 inh inhalation DAILY 30 days HPI HPI Comments History of Present Illness Details 57-year-old female presents today as she is going for a CTA soon. Certified linux systems engineer used. She reports she has been doing well since last visit. She still gets the chest pains with no pattern. Last episode was last week and was only seconds long. Her blood pressure was intially high upon arrival but rechecked by me and improved. [facility] Medical History LBBB (left bundle branch block) Essential hypertension Polyarthralgia Acquired hypothyroidism GERD (gastroesophageal reflux disease) Surgical History History of 2 sections Hx of lithotripsy Family History Mother Diabetes Arthritis Father No problems noted. Brother Rheumatic fever Maternal Grandmother Arthritis Other Family history of diabetes mellitus Family history of heart disease Social History Alcohol intake: current Alcohol intake frequency: holidays/special occasions only Patient Tobacco Use Status: Former Tobacco user Quit Date: 2017 Review of Systems Const Denies weakness ENT Denies dizziness Card Denies chest pain, Denies chest pain with activity, Denies syncope, Denies rapid heart rate, Denies pedal edema, Denies edema, Denies leg edema, Denies lightheadedness, Denies palpitations, Denies dyspnea, Denies dyspnea on exertion and Denies orthopnea Resp Denies cough, Denies dyspnea and Denies dyspnea on exertion GI Denies hematochezia and Denies change in stool character Musc Denies abnormal gait, Denies muscle cramps, Denies muscle weakness, Denies numbness, Denies radiating pain into limb and Denies tingling Neuro Denies abnormal gait, Denies dizziness, Denies syncope, Denies numbness, Denies tingling and Denies weakness Endo Denies palpitations Physical Exam Vital Signs: Last Vital Signs Pulse 82 06/08/23 13:23 BP 128/70 06/08/23 13:55 BMI result Body Mass Index 31.4 Const General: healthy appearing and no acute distress Orientation/consciousness: patient oriented x3 HEENT Head: Yes normal to inspection Eyes General: appearance normal, both eyes and all related structures Neck Neck: Yes normal visual inspection Chest Chest palpation & inspection: normal inspection of the chest Resp Effort & Inspection: normal respiratory effort Auscultation: clear to auscultation bilaterally Cardio Jugular venous distension: no JVD Palpation: normal PMI Rate: regular rate Rhythm: regular rhythm Heart sounds: S1 normal heart sound present, S2 normal heart sound present, no click, no gallops, no murmurs and no rubs GI Inspection: Yes normal to inspection Palpation (GI): Soft to palpation Skin General skin exam: no rashes or lesions noted Neuro General: patient oriented x3 Extrem General: Yes normal to inspection Psych Appearance: grossly normal Results Reviewed Results Reviewed: The left ventricular systolic function is normal. The visually estimated ejection fraction is between 55-60%. - No obvious valvular pathology seen on this study. Assessment & Plan Assessment & Plan (1) Precordial chest pain: Code(s): R07.2 - Precordial pain (2) Essential hypertension: Code(s): I10 - Essential (primary) hypertension (3) LBBB (left bundle branch block): Code(s): I44.7 - Left bundle-branch block, unspecified Plan LBBB seen on EKG last visit. Echocardiogram showed EF of 55-60%. Mild increase in LV thickness. No wall motion or obvious valve abnormalities. Blood pressure initially high, rechecked by me and improved to acceptable range. Sent refills for enalapril and metoprolol succinate. ED care for chest pain if needed. Will have her return after CTA. Medications: New enalapril maleate 20 mg PO DAILY 90 tabs 1RF Changed From metoprolol succinate ER 100 mg PO DAILY To metoprolol succinate ER 100 mg PO DAILY 90 days 90 tabs 1RF Coding Level of Care Code Est Pt Level 4 (53683) Diagnoses Precordial chest pain R07.2 Essential hypertension I10 LBBB (left bundle branch block) I44.7
[2023-06-08 13:55] VITALS: BP 128/70
== END 2023-06-08 14:00 | disposition home or self-care (01) ==
PROVIDERS: PCP Internal Medicine; Visit Provider Nurse Practitioner
DX: R07.2 Precordial pain (principal); I10 Essential (primary) hypertension; I44.7 Left bundle-branch block, unspecified
CPT/HCPCS: 99214

== ENCOUNTER → 2023-06-08 12:44 | Outpatient (BNVA) | payer MEDICAID, SELFPAY | PROVIDERS: PCP Internal Medicine; Visit Provider Nurse Practitioner | DX: R07.2 Precordial pain (principal); I44.7 Left bundle-branch block, unspecified; I10 Essential (primary) hypertension; Z79.899 Other long term (current) drug therapy | CPT/HCPCS: 99212 ==

== ENCOUNTER 2023-10-16 10:51 | Outpatient (AMB) | payer MEDICAID, SELFPAY ==
[2023-10-16 10:56] VITALS: BP 148/87; PULSE 86; O2SAT 99; BMI 30.1
--- NOTE | 2023-10-16 10:56 | MHC.OFFVIS ---
Vital Signs 10/16/23 10:56 Height 4 ft 11 in Weight 148 lb 12.992 oz BMI 30.1 BP 148/87 H Blood Pressure Location Rt brachial Position Sitting Pulse 86 Pulse Source Doppler Pulse Oximetry (%) 99 Oxygen Delivery Method Room Air Intake Visit Reasons: Asthma District Agent Required: Yes District Agent Name: Brenda Xie Kimani Allergies Penicillins [PENICILLINS] Allergy (Unknown, Verified 02/22/23 13:08) Swelling, Rash HPI HPI Asthma: Details: 58-year-old lady, former minimal smoker, with underlying obesity followed for intermittent episodes of dyspnea, environmental allergies, and severe persistent allergic asthma.? She has been switched from Xolair to Dupixent with improvement in symptom control. She unfortunately stop using Breo and Incruse and has been heavily dependent on her albuterol MDI. Though she denies acute exacerbations. [facility] Medical History LBBB (left bundle branch block) Essential hypertension Polyarthralgia Acquired hypothyroidism GERD (gastroesophageal reflux disease) Surgical History History of 2 sections Hx of lithotripsy Family History Mother Diabetes Arthritis Father No problems noted. Brother Rheumatic fever Maternal Grandmother Arthritis Other Family history of diabetes mellitus Family history of heart disease Social History Alcohol intake: current Alcohol intake frequency: holidays/special occasions only Patient Tobacco Use Status: Former Tobacco user Review of Systems Const Denies daytime sleepiness, Denies excessive sweating, Denies fatigue, Denies fever(s), Denies lethargy, Denies malaise, Denies night sweats, Denies snoring and Denies weight loss Eyes Denies blurry vision and Denies itchy eyes ENT Denies nasal congestion, Denies post nasal drip, Denies sinus pain, Denies sinus pressure and Denies other ( Thrush) Card Denies chest pain, Denies pedal edema, Denies dyspnea, Denies orthopnea and Denies paroxysmal nocturnal dyspnea Resp Denies cough, Denies hemoptysis, Denies excessive phlegm production, Denies dyspnea, Denies snoring and Denies wheezing GI Denies abdominal pain and Denies heartburn Musc Denies myalgias, Denies arthralgias and Denies joint swelling Skin/Breast Denies rash Neuro Denies memory loss and Denies seizure-like activity Psych Denies abnormal sleep pattern, Denies anxiety and Denies memory loss Endo Denies excessive sweating, Denies fatigue and Denies heat intolerance Harshil/Lymph Denies easy bruising Aller/Immun Denies itchy eyes, Denies seasonal rhinorrhea and Denies wheezing Physical Exam Vital Signs: Last Vital Signs Pulse 86 10/16/23 10:56 BP 148/87 H 10/16/23 10:56 Pulse Ox 99 10/16/23 10:56 Oxygen Delivery Method Room Air 10/16/23 10:56 BMI result Body Mass Index 30.1 Const General: no acute distress and alert Nutritional Appearance: not obese Orientation/consciousness: Other orientation findings ( oriented) HEENT Head: Yes atraumatic Eyes General: appearance normal, both eyes and all related structures Sclerae: sclerae normal EOM: EOMs intact bilaterally Neck Neck: Yes supple Lymphatic: no lymphadenopathy noted Resp Effort & Inspection: normal respiratory effort and no use of accessory muscles Auscultation: clear to auscultation bilaterally Cardio Rate: regular rate Rhythm: regular rhythm Heart sounds: no gallops, no murmurs and no rubs Skin General skin exam: other ( warm) Extrem General: No clubbing, No cyanosis and No edema Assessment & Plan Assessment & Plan (1) Asthma: Code(s): J45.909 - Unspecified asthma, uncomplicated Category: Medical Plan: Improved control on Dupixent, however now suboptimal as patient has stopped using Breo and Incruse. Restart Breo and Incruse. Continue Dupixent and albuterol MDI. (2) Environmental allergies: Code(s): Z91.09 - Other allergy status, other than to drugs and biological substances Category: Medical Plan: Well controlled on Dupixent. Continue current regimen. Medications: Refilled fluticasone propionate 50 mcg/actuation 1 spray intranasal BID 3 ea 6RF Coding Level of Care Code Est Pt Level 4 (93314) Diagnoses Asthma J45.909 Environmental allergies Z91.09
== END 2023-10-16 11:17 | disposition home or self-care (01) ==
PROVIDERS: PCP Internal Medicine; Visit Provider Internal Medicine Pulmonary Disease
DX: J45.909 Unspecified asthma, uncomplicated (principal); Z91.09 Other allergy status, other than to drugs and biological substances
CPT/HCPCS: 99214

== ENCOUNTER → 2023-10-16 10:51 | Outpatient (BNVA) | payer MEDICAID, SELFPAY | PROVIDERS: PCP Internal Medicine; Visit Provider Internal Medicine Pulmonary Disease | DX: J45.909 Unspecified asthma, uncomplicated (principal); Z91.09 Other allergy status, other than to drugs and biological substances | CPT/HCPCS: 99212 ==

== ENCOUNTER 2024-06-19 13:55 | Outpatient (REF) | payer MEDICAID, SELFPAY ==
--- NOTE | ~2024-06-19 | XR_ITS ---
EXAMINATION: XR LUMBAR SPINE 2-3 VIEWS HISTORY: several day h/o right low back pain with right radiculopathy. COMPARISON: Comparison is made with the prior examination dated 04/29/2019. FINDINGS: AP, lateral, and coned down views of the lumbar spine are submitted. Osseous mineralization is normal. Five nonrib-bearing lumbar vertebral bodies are identified, maintaining normal height and alignment without evidence of fracture or spondylolisthesis. The intervertebral disc spaces are preserved. The posterior elements are intact. There is calcification of the abdominal aorta. XR/XR lumbar spine 2-3V IMPRESSION: Unremarkable examination of the lumbar spine. Electronically signed by: Mannie Guaman MD 06/19/2024 02:53 PM EDT
== END 2024-06-19 13:56 | disposition home or self-care (01) ==
LOC: HO.HHCX 13:55
PROVIDERS: Visit Provider Emergency Medicine
DX: M54.41 Lumbago with sciatica, right side (principal)
CPT/HCPCS: 72100

== ENCOUNTER → 2024-06-19 13:55 | Outpatient (BNV) | payer MEDICAID, SELFPAY | PROVIDERS: Visit Provider Radiology Diagnostic Radiology | DX: M54.59 Other low back pain (principal); I70.0 Atherosclerosis of aorta | CPT/HCPCS: 72100 ==

== ENCOUNTER 2024-08-20 13:14 | Outpatient (REF) | payer MEDICAID, SELFPAY ==
--- OUTSIDE RECORDS SUMMARY | 2024-08-20 14:05 | XMS_ITS | Encounter Summary ---
Author Organization [employer] Address [address] [place] [address] Care Team Providers Care Clinical Data Assistant Name Role Phone Delvis Goss MD Primary Care Provide r Reason for Visit * Reason Onset Date Comments Appointment Request 12/11/2022 Encounter Details Date Type Department Care Team ([facility] Contact Info) Description 12/11/[address] [facility] MEDICINE [address] [place], [place] [phone] Delvis Goss MD [address] [place] [address] Appointment Request Social History Tobacco Use Types Packs/Day Years Used Date Smoking Tobacco: Never Passive Smoke Exposure: Never Smokeless Tobacco: Never Depression Answer Date Recorded Patient Health Questionnaire-9 Score 4 04/27/2022 Depression Answer Date Recorded Patient Health Questionnaire-2 Score 2 04/27/2022 Comments Unknown Sex and Gender Information Value Date Recorded Sex Assigned at Female 01/23/2022 10:32 AM EDT Legal Sex Female 10:32 AM EDT Gender Identity Female 01/23/2022 10:32 AM EDT Sexual Orientation Choose not to disclose 2021 10:32 AM EDT documented as of this encounter Miscellaneous Notes * Telephone Encounter - Serina Elmore - 12/11/2022 4:18 PM EDT TC from pt requesting to r/s appt follow up on 12/12/2022 @ 1:15 pm for 3 mo f/u HTN. Please contact @ [phone] Angolan Speaker documented in this encounter Plan of Treatment Not on file documented as of this encounter Visit Diagnoses Not on filedocumented in this encounter Additional Health Concerns Assessment Noted Time PHQ-9 Depression Total Score: 4 04/27/19 23 1:40 PM EST documented as of this encounter Care Teams Clinical Data Assistant Relationship Specialty Start Date End Date Delvis Goss MD [address] [place] [id number] PCP - General Internal Medicine 02/06/19 documented as of this encounter
[2024-08-20 16:15] LABS: MANUAL DIFF FLAG NO
[2024-08-20 16:27] LABS: Basophils Absolute Auto 0.1 X10*3/uL (0.0-0.2); Basophils Percent Auto 0.7 % (0-2); Eosinophils Absolute Auto 0.1 X10*3/uL (0.0-0.4); Eosinophils Percent Auto 0.9 % (0-4); Hematocrit 39.1 % (37.0-47.0); Hemoglobin 12.4 g/dl (12.0-16.0); Imm Gran Abs Auto 0.02 X10*3/uL (0.00-0.03); Imm Gran Pct Auto 0.3 % (0.0-0.4); Lymphocytes Absolute Auto 3.1 X10*3/uL (1.2-4.9); Lymphocytes Percent Auto 41.9 % (20-40); Mean Corpuscular HGB Conc 31.7 g/dl (31.0-35.0); Mean Corpuscular Hemoglobin 27.9 pg (27.0-33.0); Mean Corpuscular Volume 88.1 fL (80.0-98.0); Mean Platelet Volume 10.7 fL (9.4-12.3); Monocytes Absolute Auto 0.5 X10*3/uL (0.1-1.2); Monocytes Percent Auto 7.1 % (2-11); Neutrophils Absolute Auto 3.7 x10*3/uL (2.0-8.3); Neutrophils Percent Auto 49.1 % (45-73); Platelet Count 382 X10*3/uL (160-400); Red Blood Count 4.44 X10*6/uL (4.20-5.50); Red Cell Distribution Width 13.5 % (11.0-16.0); White Blood Count 7.5 X10*3/uL (4.8-10.8)
[2024-08-20 16:39] LABS: Estimated Average Glucose 117 mg/dL; Hemoglobin A1c % 5.7 % (<6.0)
[2024-08-20 16:40] LABS: Alanine Aminotransferase 24 U/L (0-31); Albumin Level 4.5 g/dL (3.5-5.0); Alkaline Phosphatase 97 U/L (39-117); Anion Gap 11 (12-20); Aspartate Amino Transferase 27 U/L (5-31); Bilirubin Direct 0.2 mg/dL (0.0-0.5); Bilirubin Total 0.5 mg/dL (0.0-1.0); Blood Urea Nitrogen 8 mg/dL (9-16); Calcium 8.8 mg/dL (8.4-10.2); Carbon Dioxide 26 mmol/L (22-29); Chloride 105 mmol/L (96-108); Cholesterol 191 mg/dL (<200); Estimated Glomerular Filt Rate > 60; Glucose Random 93 mg/dL (60-115); HDL Cholesterol 41 mg/dL (>40); LDL Cholesterol Calculated 132 mg/dL (<100); Potassium 3.8 mmol/L (3.3-5.1); Sodium 138 mmol/L (135-145); Total Protein 7.9 g/dL (6.5-8.0); Triglycerides 93 mg/dL (<150)
[2024-08-20 17:00] LABS: Thyroid Stimulating Hormone 1.22 uIU/mL (0.32-4.0)
== END 2024-08-20 13:15 | disposition home or self-care (01) ==
LOC: HO.HHCL 13:14
PROVIDERS: Visit Provider Dietitian, Registered
DX: F33.3 Major depressive disorder, recurrent, severe with psychotic symptoms (principal); F43.10 Post-traumatic stress disorder, unspecified
CPT/HCPCS: 36415; 80053; 80061; 82248; 83036; 84443; 85025

== ENCOUNTER 2025-01-01 12:55 | Outpatient (AMB) | payer MEDICAID, SELFPAY ==
--- NOTE | 2025-01-01 13:42 | A.OFFVIS_ITS ---
Vital Signs 01/01/25 13:43 Height 4 ft 11 in Weight 168 lb 13.985 oz BMI 34.1 BP 180/70 H Blood Pressure Location Lt brachial Position Sitting Pulse 72 Pulse Source Monitor Intake Visit Reasons: 2 month r/s from 12/30 Weaving Machine Operator Required: Yes Weaving Machine Operator Language: Placement Secretary Name: [email or web address] Accompanied by: Self / Same As Patient Allergies Penicillins (PENICILLINS) Allergy (Unknown, Verified 02/22/23 13:08) Swelling, Rash Medication List - Last Reconciled 01/01/25 by Ricki Loaiza MD albuterol sulfate 90 mcg/actuation 2 puffs inhalation 6XD PRN 30 days docusate sodium 100 mg PO BEDTIME PRN enalapril maleate 20 mg PO DAILY fluticasone furoate-vilanterol 200-25 mcg/dose (Breo Ellipta) 1 inh inhalation DAILY 30 days fluticasone propionate 50 mcg/actuation 1 spray intranasal BID gabapentin 300 mg PO TID ibuprofen 800 mg PO TID metoprolol succinate ER 100 mg PO DAILY 90 days simethicone 80 mg PO TID PRN HPI Comments Details: Adela returns for follow-up. Has a history of left bundle-branch block. She had reported chest pains in the past. Hence we had requested a coronary CTA but never completed. Otherwise, has hypertension on medications. Today's blood pressure is on the higher side. Otherwise, she still has some random chest pains in no specific patterns. Nothing clear-cut angina. No documented coronary disease in the past. History of prior stress test from 2019 that was apparently negative for ischemia. [facility] Medical History LBBB (left bundle branch block) Essential hypertension Polyarthralgia Acquired hypothyroidism GERD (gastroesophageal reflux disease) Surgical History History of 2 sections Hx of lithotripsy Family History Mother Diabetes Arthritis Father No problems noted. Brother Rheumatic fever Maternal Grandmother Arthritis Other Family history of diabetes mellitus Family history of heart disease Social History Alcohol intake: current Alcohol intake frequency: holidays/special occasions only Patient Tobacco Use Status: Former Tobacco user Review of Systems Const Denies chills, Denies fatigue, Denies fever(s), Denies frequent falls, Denies weakness, Denies weight gain and Denies weight loss ENT Denies dizziness Card Denies chest pain, Denies leg edema, Denies lightheadedness, Denies palpitations, Denies dyspnea and Denies dyspnea on exertion Resp Denies cough, Denies dyspnea and Denies dyspnea on exertion GI Denies hematochezia Musc Denies abnormal gait, Denies muscle weakness, Denies numbness, Denies radiating pain into limb and Denies tingling Neuro Denies abnormal gait, Denies dizziness, Denies frequent falls, Denies numbness, Denies tingling and Denies weakness Endo Denies fatigue and Denies palpitations Physical Exam Vital Signs: Last Vital Signs Pulse 72 01/01/25 13:43 BP 180/70 H 01/01/25 13:43 BMI result Body Mass Index 34.1 Const General: comfortable and no acute distress Orientation/consciousness: patient oriented x3 HEENT Other: Unremarkable Head: Yes normal to inspection Neck Neck: Yes normal visual inspection Chest Chest palpation & inspection: normal inspection of the chest Resp Auscultation: clear to auscultation bilaterally Cardio Palpation: normal PMI Heart sounds: S1 normal heart sound present, S2 normal heart sound present, no gallops, no murmurs and no rubs GI Palpation (GI): Soft to palpation Back/Spine/Pelvis Other: unremarkable Skin General skin exam: no rashes or lesions noted Neuro General: patient oriented x3 Extrem General: Yes normal to inspection Psych Mental Status: mental status grossly normal Office Procedures EKG Details: EKG with underlying sinus rhythm at 72/Min; left bundle-branch block pattern. [id number], Complete Assessment & Plan Assessment & Plan (1) LBBB (left bundle branch block): Code(s): I44.7 - Left bundle-branch block, unspecified Category: Medical (2) Precordial chest pain: Code(s): R07.2 - Precordial pain Category: Medical (3) Essential hypertension: Code(s): I10 - Essential (primary) hypertension Category: Medical Plan Echocardiogram from 2022 with LVEF of 55-60%. No significant valvular findings. Coronary CTA requested in the past but never completed. We will try a pharmacological stress with Lexiscan if she can do that rather. With regard to hypertension, meds need to be adjusted. Cut back on the dose of metoprolol as he also has underlying conduction system disease. We will add amlodipine 10 mg daily. Otherwise, on enalapril. That may need some dose adjustments too. Follow up after the stress test. Discussion Notes I discussed with the patient the need for a stress test to evaluate her cardiovascular health further, given her history of hypertension and left bundle-branch block. We also discussed about medication changes for high blood pressure. Patient was informed and verbally consented to the use of an ambient scribe for clinic note documentation during this visit. Orders: Orders CA lexiscan stress w bridget Today I20.9 - Angina pectoris, unspecified, I44.7 - Left bundle-branch block, unspecified NM cardiolite stress test Today I44.7 - Left bundle-branch block, unspecified, R07.2 - Precordial pain Medications: New metoprolol succinate ER (Toprol XL) 50 mg PO DAILY 90 tabs 1RF amlodipine 10 mg PO DAILY 90 tabs 1RF Discontinued metoprolol succinate ER Discontinued Reason: Doctor's Order 100 mg PO DAILY 90 days 90 tabs 1RF Patient Instructions: - Continue taking enalapril as prescribed. - Adjust metoprolol dosage to 50 mg daily as discussed. - Attend the scheduled stress test appointment. - Monitor for any new or worsening symptoms and report them immediately. Coding Level of Care Code Est Pt Level 4 (04829) Complex EM visit Add On G2211 Diagnoses LBBB (left bundle branch block) I44.7 Precordial chest pain R07.2 Essential hypertension I10 CPT Codes EKG - CPT: 70924-[id number], Complete ([id number])
[2025-01-01 13:43] VITALS: BP 180/70; PULSE 72; BMI 34.1
== END 2025-01-01 14:10 | disposition home or self-care (01) ==
LOC: HO.HCS 12:55
PROVIDERS: PCP Internal Medicine; Referring Provider Internal Medicine; Visit Provider Internal Medicine
DX: I44.7 Left bundle-branch block, unspecified (principal); R07.2 Precordial pain; I10 Essential (primary) hypertension
CPT/HCPCS: 93010; 99214

== ENCOUNTER → 2025-01-01 12:55 | Outpatient (BNVA) | payer MEDICAID, SELFPAY | PROVIDERS: PCP Internal Medicine; Visit Provider Internal Medicine | DX: I10 Essential (primary) hypertension (principal); I44.7 Left bundle-branch block, unspecified; R07.2 Precordial pain | CPT/HCPCS: 93005; 99212 ==